=== PATIENT | male | born 1945 | race Caucasian/White ===

== ENCOUNTER 2022-05-11 13:28 | Inpatient (IN) | payer MEDICARE, OTHER ==
[~2022-05-11] VITALS: Ht 175.3 cm; Wt 99.8 kg
[~2022-05-11 13:28] MED LIST: MOXI400 PO
[2022-05-11] MEDS ORDERED: Acetaminophen650 M1 PO (14:53)
[2022-05-11] MEDS ORDERED: ALBU90OI INH (14:54)
[2022-05-11] MEDS ORDERED: ASPI81CH PO (14:54)
[2022-05-11] MEDS ORDERED: ATOR40TA PO (14:54)
[2022-05-11 14:55] LABS: BASOPHILS ABSOLUTE AUTO 0.05 K/mm3 (0.00-0.23); BASOPHILS PERCENT AUTO 1 % (0-2); EOSINOPHILS ABSOLUTE AUTO 0.22 K/mm3 (0.00-0.68); EOSINOPHILS PERCENT AUTO 2 % (0-6); Hematocrit 44.2 % (37.0-53.0); Hemoglobin 14.1 g/dL (13.5-17.5); IMMATURE GRAN ABSOLUTE AUTO 0.04 K/mm3 (0.00-0.10); IMMATURE GRAN PERCENT AUTO 0 % (0-1); LYMPHOCYTES ABSOLUTE AUTO 1.04 K/mm3 (0.84-5.20); LYMPHOCYTES PERCENT AUTO 11 % (21-46); MONOCYTES ABSOLUTE AUTO 0.69 K/mm3 (0.16-1.47); MONOCYTES PERCENT AUTO 7 % (4-13); Mean Corpuscular HGB 27.5 pg (26.0-34.0); Mean Corpuscular HGB Conc 31.9 g/dL (31.5-36.5); Mean Corpuscular Volume 86 fL (80-100); Mean Platelet Volume 10.1 fL (9.1-12.4); NEUTROPHILS ABSOLUTE AUTO 7.24 K/mm3 (1.96-9.15); NEUTROPHILS PERCENT AUTO 78 % (41-73); Platelet Count 371 K/mm3 (150-400); RDW Coefficient Variation 16.9 % (11.7-14.2); RDW Standard Deviation 53.4 fL (35.1-46.3); Red Blood Cell Count 5.13 M/mm3 (4.30-5.90); White Blood Cell Count 9.28 K/mm3 (4.00-11.30)
[2022-05-11] MEDS ORDERED: GLIM4 PO (14:55)
[2022-05-11] MEDS ORDERED: JARDIANCE10 MG PO (14:55)
[2022-05-11] MEDS ORDERED: METF500 (14:55)
[2022-05-11] MEDS ORDERED: MIDO5 PO (14:55)
[2022-05-11] MEDS ORDERED: MIRALAX17 GM PO (14:56)
[2022-05-11] MEDS ORDERED: SENN187 PO (14:58)
[2022-05-11] MEDS ORDERED: TIOT18 INH (14:58)
[2022-05-11 15:15] LABS: Albumin, Blood 2.5 g/dL (3.4-5.0); Albumin/Globulin Ratio 0.5 (0.8-1.8); Bilirubin, Total 0.2 mg/dL (0.1-1.0); Bun/Creatinine Ratio 22.1 (12.0-20.0); Calcium, Blood 9.2 mg/dL (8.5-10.1); Creatinine, Blood 0.91 mg/dL (0.60-1.20); Globulin, Blood 5.3 g/dL (2.2-4.0); Potassium, Blood 4.8 mmol/L (3.5-5.5); Total Protein, Blood 7.8 g/dL (6.4-8.2)
--- NOTE | 2022-05-11 18:52 | NUR ---
ADMISSION: REPORT RECEIVED FROM ED RN. PT TO UNIT AT ABOUT 1800. PT A/O, VSS. LAST OF NS FLUIDS INFUSED AND IV FLUSHED, ANTIBIOTIC HUNG. PICTURES TAKEN OF R FOOT, SEE CHART. DR. BONE IN ROOM AT ABOUT 1830, SEE NEW ORDERS. NO ACUTE CONCERNS. WILL PASS REPORT TO NOC RN.
[2022-05-12] MEDS ORDERED: Calcium Carbon500 MG PO (01:44)
--- NOTE | 2022-05-12 05:03 | NUR ---
SUMMARY: PATIENT DID WELL OVERNIGHT. NO ACUTE EVENTS. CALLED [facility] TO COMPLETE MED REC AND COMPLETED AMDISSION. PATIENT AOX4 ABLE TO ANSWER ORIENTATION QUESTIONS BUT DOES NOT KNOW A LOT ABOUT HIS MEDICAL HISTORY. PLEASANT AND COMPLIANT WITH CARE. PACKED R FOOT WOUND WITH IODOFORM, APPLIED WET TO DRY AND COVERED FOOT PER ORDER. PATIENT STATES HE HAS NO PAIN IN HIS WOUND. HE MOVED WELL IN THE BED ABLE TO TURN INDEPENDENTLY AND BOOST HIMSELF UP. VSS. PATIENT IS A VERY HARD STICK LAB WAS NOT ABLE TO GET REPEAT LACTIC. REQUEST MADE FOR POWER GLIDE IV TO BE INSERTED THIS AM TO ASSIST WITH DRAWS.
[2022-05-12 08:02] LABS: BASOPHILS ABSOLUTE AUTO 0.05 K/mm3 (0.00-0.23); BASOPHILS PERCENT AUTO 1 % (0-2); EOSINOPHILS ABSOLUTE AUTO 0.24 K/mm3 (0.00-0.68); EOSINOPHILS PERCENT AUTO 3 % (0-6); Hematocrit 42.7 % (37.0-53.0); Hemoglobin 13.7 g/dL (13.5-17.5); IMMATURE GRAN ABSOLUTE AUTO 0.04 K/mm3 (0.00-0.10); IMMATURE GRAN PERCENT AUTO 1 % (0-1); LYMPHOCYTES ABSOLUTE AUTO 0.92 K/mm3 (0.84-5.20); LYMPHOCYTES PERCENT AUTO 11 % (21-46); MONOCYTES ABSOLUTE AUTO 0.69 K/mm3 (0.16-1.47); MONOCYTES PERCENT AUTO 8 % (4-13); Mean Corpuscular HGB 27.5 pg (26.0-34.0); Mean Corpuscular HGB Conc 32.1 g/dL (31.5-36.5); Mean Corpuscular Volume 86 fL (80-100); Mean Platelet Volume 9.5 fL (9.1-12.4); NEUTROPHILS ABSOLUTE AUTO 6.71 K/mm3 (1.96-9.15); NEUTROPHILS PERCENT AUTO 78 % (41-73); Platelet Count 309 K/mm3 (150-400); RDW Standard Deviation 53.1 fL (35.1-46.3); Red Blood Cell Count 4.99 M/mm3 (4.30-5.90); White Blood Cell Count 8.65 K/mm3 (4.00-11.30)
[2022-05-12 08:21] LABS: Albumin, Blood 2.3 g/dL (3.4-5.0); Anion Gap 8 mmol/L (6-16); Blood Urea Nitrogen 18 mg/dL (8-24); Bun/Creatinine Ratio 21.5 (12.0-20.0); CO2, Blood 27 mmol/L (21-32); Chloride, Blood 105 mmol/L (98-108); Creatinine, Blood 0.84 mg/dL (0.60-1.20); Glomerular Filtration Rate 92 (60-); Glucose, Blood 82 mg/dL (70-99); Phosphorus, Blood 4.4 mg/dL (2.5-4.9); Potassium, Blood 4.1 mmol/L (3.5-5.5); Sodium, Blood 140 mmol/L (136-145)
--- NOTE | 2022-05-12 15:26 | NUR ---
RN NOTE MR CHERY IS ORIENTATED TO SELF, MONTH/YEAR, TO "HOSPITAL" BUT NOT WHICH ONE, IS QUITE FORGETFUL GENERALLY. BED ALARM ON. LEFT FOOT WITH DRY PEELING SKIN AND RIGHT FOOT WITH DRESSING C,D,I CHANGED ON PRODUCTION GENERALIST. PT DENIES PAIN. MRI DONE THIS AM. PT FORGOT THAT HE HAD HAD AN MRI. POWERGLIDE IN PLACE TODAY. BED ALARM IN USE. BED LOW, CALL LIGHT IN REACH.
--- NOTE | 2022-05-12 18:42 | NUR ---
SHIFT ASSESSMENT. SEE PRIOR RN NOTE. MR CHERY DID NOT GET THE MRI TODAY. HE WAS TRANSFERED DOWN TO MRI AND BROUGHT BACK, BUT PROCEDURE WAS NOT DONE. ARTIFICIAL LOG MACHINE OPERATOR SAID THEY ARE STILL INVESTIGATING THE CARDIAC STENTS. PT CONSULTED BY DR BONE WHO REMOVED THE DRESSING AND REQUESTED A CONSULT TO DR CUMMINGS. I SPOKE TO ANSWERING SERVICE AND GAVE DETAILS FOR CONSULT. THE RIGHT FOOT DRESSING WAS CLEANSED AND REPACKED AND XEROFORM PLACED OVER THE WOUND PER DR BONE INSTRUCTIONS. MR CHERY DOES NOT HAVE ANY SENSATION TO HIS FOOT WHEN DRESSING IS PACKED. BED LOW, CALL LIGHT IN REACH. BED ALARM ON.
[2022-05-13 06:04] LABS: BASOPHILS ABSOLUTE AUTO 0.06 K/mm3 (0.00-0.23); BASOPHILS PERCENT AUTO 1 % (0-2); EOSINOPHILS ABSOLUTE AUTO 0.33 K/mm3 (0.00-0.68); EOSINOPHILS PERCENT AUTO 5 % (0-6); Hematocrit 42.9 % (37.0-53.0); Hemoglobin 13.8 g/dL (13.5-17.5); IMMATURE GRAN ABSOLUTE AUTO 0.02 K/mm3 (0.00-0.10); IMMATURE GRAN PERCENT AUTO 0 % (0-1); LYMPHOCYTES ABSOLUTE AUTO 0.97 K/mm3 (0.84-5.20); LYMPHOCYTES PERCENT AUTO 14 % (21-46); MONOCYTES ABSOLUTE AUTO 0.69 K/mm3 (0.16-1.47); MONOCYTES PERCENT AUTO 10 % (4-13); Mean Corpuscular HGB 27.2 pg (26.0-34.0); Mean Corpuscular HGB Conc 32.2 g/dL (31.5-36.5); Mean Corpuscular Volume 85 fL (80-100); NEUTROPHILS ABSOLUTE AUTO 5.09 K/mm3 (1.96-9.15); NEUTROPHILS PERCENT AUTO 71 % (41-73); Platelet Count 328 K/mm3 (150-400); RDW Coefficient Variation 17.1 % (11.7-14.2); RDW Standard Deviation 52.7 fL (35.1-46.3); Red Blood Cell Count 5.07 M/mm3 (4.30-5.90); White Blood Cell Count 7.16 K/mm3 (4.00-11.30)
[2022-05-13 06:19] LABS: Bun/Creatinine Ratio 15.4 (12.0-20.0); Calcium, Blood 8.7 mg/dL (8.5-10.1); Creatinine, Blood 0.78 mg/dL (0.60-1.20); Potassium, Blood 3.8 mmol/L (3.5-5.5)
--- NOTE | 2022-05-13 06:50 | NUR ---
SHIFT SUMMARY PT ALERT AND ORIENT X 2. VSS. DRSG TO RT FOOT C/D/I. PLEASANT AND COOPERATIVE WITH CARE. PT TO HAVE MRI YESTERDAY, BUT HAVE HISTORY OF CARDIAC STENT AND MRI NOT DONE. X-RAY TECH STILL HAVE TO INVESTIGATE WHETHER PT CAN HAVE MRI DONE WITH CARDIAC STENTS. POWER GLIDE TO LEFT UPPER ARM NOT ABLE TO FLUSH. RIGHT AC IV FLUSHES WELL.
--- NOTE | 2022-05-13 18:13 | NUR ---
SHIFT SUMMARY PT A&O X 3. SEEMS TO HAVE SOME SHORT TERM MEMORY LOSS. ORTHO MD SAW PT TODAY AND ORDERED CT OF R LEG AND XRAY OF R EFREN & FEMUR. 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 PT PLEASANT AND COOPERATIVE WITH ALL CARE.
--- NOTE | 2022-05-14 05:06 | NUR ---
SHIFT SUMMARY ALERT AND ORIENTED TO SELF AND SITUATION. VSS. DENIES PAIN. PT TIRED THIS EVENING AND SLEEPING MOST OF THE NIGHT. NPO AFTER MIDNIGHT AND CHG BATH TO BE GIVEN BY PET CARE ASSISTANT AT 0500. DRSG TO RT FOOT INTACT. PT USES URINAL AT BEDSIDE. BED ALARM ON.
[2022-05-14 10:07] LABS: SARS-Cov-2 (COVID-19) PCR, MMC NEGATIVE (NEGATIVE)
--- NOTE | 2022-05-14 19:10 | NUR ---
SHIFT SUMMARY: PT A/O X 4 BEDREST AT THIS TIME. PT NPO UNTIL 2 PM TODAY WHEN IT WAS DISCOVERED NO SURGERY SCHEDULED. PT GIVEN LUNCH FROM [facility]. PT UPDATED WITH PLAN OF CARE. PT TO BE SEEN BY DR. CUMMINGS ON MONDAY FOR POSSIBLE REVASCULAR SURGERY FIRST. NURSE NOTIFICATION PLACED. PT DENIED PAIN THROUGHOUT THE DAY. WOUND CARE COMPLETED AND PHOTO TAKEN OF WOUND.
--- NOTE | 2022-05-15 07:20 | NUR ---
SHIFT SUMMARY ALERT AND ORIENTED. FORGETFUL AT TIMES. VSS. DENIES PAIN. ABLE TO MAKE NEEDS KNOWN. PLEASANT AND COOPERATIVE WITH CARE. USES URINAL AT BEDSIDE. RT FOOT DRSG C/D/I. SLEPT IN BETWEEN CARES. BED ALARM ON.
--- NOTE | 2022-05-15 20:00 | NUR ---
END OF SHIFT SUMMARY: PATIENT DENIED PAIN AND DISCOMFORT THROUGHOUT THE SHIFT. PATIENT IS AGREEABLE TO CARE; CALM AND COOPERATIVE. PATIENT IS UNABLE TO ANSWER QUESTIONS ABOUT HIS HEALTH HISTORY RELATED TO HIS FOOT. HOWEVER, PATIENT IS ABLE TO REMEMBER THAT HE IS SUPPOSED TO HAVE SURGERY ON THE FOOT. ORDER IN PLACE, AND NOTIFIED NIGHT RN THAT DR. CUMMINGS NEEDS TO BE CONSULTED IN THE MORNING. PATIENT IS NPO AT MIDNIGHT IN THE EVENT A PROCEDURE IS ABLE TO BE PERFORMED TOMORROW.
[2022-05-16 05:37] LABS: Hemoglobin 13.8 g/dL (13.5-17.5); Mean Corpuscular HGB 27.4 pg (26.0-34.0); Mean Corpuscular HGB Conc 32.1 g/dL (31.5-36.5); Mean Corpuscular Volume 85 fL (80-100); Mean Platelet Volume 10.1 fL (9.1-12.4); Platelet Count 281 K/mm3 (150-400); RDW Coefficient Variation 17.1 % (11.7-14.2); RDW Standard Deviation 53.5 fL (35.1-46.3); Red Blood Cell Count 5.04 M/mm3 (4.30-5.90); White Blood Cell Count 7.74 K/mm3 (4.00-11.30)
[2022-05-16 05:57] LABS: Bun/Creatinine Ratio 13.3 (12.0-20.0); Creatinine, Blood 0.83 mg/dL (0.60-1.20); Potassium, Blood 3.8 mmol/L (3.5-5.5)
--- NOTE | 2022-05-16 07:45 | NUR ---
SUMMARY PT NPO SINCE MIDNOC. PENDING SEEING DR CUMMINGS TODAY TO DETERMINE POSSIBILITY OF REVASCULARIZATION.
--- NOTE | 2022-05-16 18:34 | NUR ---
PT CAME TO PCU ABOUT 1620 THIS AFTERNOON. PT TRANSFERED FROM [facility] TO THE BLOCK [facility]LE OPERATOR AND CAME TO PCU 06 AFTER A RVASC. THEY WENT THROUGH HIS GROIN SITE AND IT HAS ANGIOSEAL, AND TEGADERM CHG ON IT. THE SITE IS W/O HEMATOMA, BLEEDING, TENDERNESS, AND DRESSING IS INTACT. PT HAS PRESENT PULSES IN BILATERAL EXTREMITIES AND THEY ARE WARM TO TOUCH. PT CAME TO THE UNIT WITH HIS RIGHT FOOT WOUND NOT DRESSED AND THE PATIENT BEGAN PICKING AT THE WOUND AND PULLED OUT THE PACKING. THE WOUND SHIFT NURSE AND I REDRESSED THE WOUND AND HAVE EDUCATED HIM MANY TIMES ABOUT LEAVING IT ALONE. PT HAS BEEN SCRATCHING AT HIS WOUND SITE WELL AND IS NOW AGGITATED BECAUSE WE KEEP REDIRECTING HIM. VS HAVE BEEN STABLE AND HE IS ON RA. PT SR ON TELE AND DENIES ANY PAIN, ANIGNA, AND SOB. HE IS ALERT AND ORIENTED, BUT HAS MOMENTS OF CONFUSION. HE IS NOT VERY COOPERATIVE AND SNAPS AT STAFF. PT HAS A BED ALARM ON, BED IS IN LOW, DOOR IS OPEN, AND THREE SIDE RAILS ARE UP. WILL CONTINUE TO MONITOR UNTIL SHIFT REPORT IS GIVEN TO THE ONCOMING SHIFT RN. SEE NOTES FOR UPDATES.
--- NOTE | 2022-05-16 19:04 | NUR ---
POST RVASC PT WAS SUPINE FOR AN HOUR STARTING ON ARRIVAL AT ABOUT 1610. PT RAISED TO 15 DEGREES AT AT 1710, 30 DEGREES AT 1810, AND IS NOW SITTING UP AT 45 DEGREES. HE WAS GIVEN HIS DINNER TRAY AND SITTING IN BEAD EATING. SITE W/O HEMATOMA, PAIN, OR BLEEDING. DRESSING INTACT AND CHARTING DONE IN HC: FLOWSHEET ASSESSMENT.
--- NOTE | 2022-05-17 18:41 | NUR ---
TRANSFER NOTE PATIENT TRANSFER TO UNIT FROM PCU. ARRIVED TO ROOM AT 1700. ALERT AND ORIENTED. RIGHT FOOT WITH DRESSING IN PLACE. CHANGED THIS SHIFT BY IR DR CUMMINGS. PLAN IS FOR ORTHO TO FOLLOW UP. TOLERATING ADA DIET AND LIQUIDS. SALINE LOCKED. USES URINAL. CALLS APPROPRIATELY. BEDREST, NWB TO RLE.
--- NOTE | 2022-05-18 04:57 | NUR ---
SHIFT SUMMARY: PT IS ALERT AND ORIENTED. PT IS CALM AND COOPERATIVE WITH CARE. PT CALLS APPROPRIATELY. PT IS ON BED REST, NON-WEIGHT BEARING ON R. FOOT. PT DENIES PAIN, NAUSEA, VOMITING, AND SOB. PT SLEPT MUCH OF THE NIGHT WHEN NOT DISTURBED. POSSIBLE SURGERY TODAY, NPO AFTER MIDNIGHT. NO ACUTE CHANGES OR COMPLICATIONS. WILL COTINUE TO MONITOR.
--- NOTE | 2022-05-18 15:47 | NUR ---
05/18/22 1547 Yamilka Pleitez PATIENT ON SCHEDULED ANTIBIOTICS. NO INTRAOPERATIVE ANTIBIOTICS ORDERED PER SURGEON.
--- NOTE | 2022-05-18 19:48 | NUR ---
END OF SHIFT SUMMARY: PATIENT DENIED PAIN THROUGHOUT THE SHIFT. AFTER RETURNING FROM HIS BKA SURGERY, PATIENT REPORTED ITCHING IN HIS RIGHT LEG AND STUMP. GENTLE RUBBING OF RIGHT LEG AND STUMP HELPED ALLEVIATE THIS. PATIENT RETURNED FROM THE PROCEDURE WITH A WHITE STUMP SOCK IN PLACE. SOCK IS C/D/I WITHOUT ANY SIGNS OF BLEEDING OR DRAINAGE. PATIENT'S VITALS STABLE UPON RETURN. PATIENT DENIED NAUSEA. PATIENT TOLERATED PO LIQUIDS WELL, BUT REPORTED LACK OF APPETITE THIS EVENING.
--- NOTE | 2022-05-19 04:48 | NUR ---
PATIENT HAS BEEN IN [employer] THROUGHOUT SHIFT. NO PAIN REPORTED, ABLE TO REPOSITION IN BED WITH MINIMAL ASSISTANCE. VITALS HAVE BEEN STABLE. DRESSING ON RIGHT LEG BKA IS CLEAN, DRY, AND INTACT. CALL LIGHT LEFT WITHIN REACH.
--- NOTE | 2022-05-19 16:06 | NUR ---
SHIFT SUMMARY PATIENT IS ALERT AND ORIENTED. PATIENT HAS BEEN PLEASENT AND COOPERATIVE WITH CARE. PATIENT HAS BEEN RESTING IN BED ALL SHIFT. PATIENT WORKED WITH OT WITH GOOD SUCCESS. PATIENT HAS HAD NO ACUTE EVENTS THIS SHIFT. VITAL SIGNS REVIEWED. PATIENT HAS NOT COMPLAINED OF PAIN, NAUSEA, SOB OR VOMITTING THIS SHIFT. BED IN LOCKED AND LOWEST POSITION. CALL LIGHT IN PLACE. WILL MONITOR UNTIL SHIFT CHANGE.
--- NOTE | 2022-05-20 04:13 | NUR ---
SHIFT SUMMARY PATIENT HAD NO ACUTE CHANGES. ALERT ORIENTED AND BEDREST. REPORTED PHANTOM RIGHT ANKLE PAIN AND TYLENOL GIVEN PER EMAR. RIGHT BKA. VSS/AFEBRILE. DENIES CHEST PAIN, SOB, AND N/V. PIV REMAINS INTACT. IV ABX INFUSED. WATCHED TV ON/OFF. COOPERATIVE WITH CARE. CALL LIGHT IN REACH. BED IN LOWEST POSITION. WILL CONTINUE TO MONITOR UNTIL DAY SHIFT NURSE ASSUMES CARE.
[2022-05-20 12:03] LABS: SARS-Cov-2 (COVID-19) PCR, MMC NEGATIVE (NEGATIVE)
--- NOTE | 2022-05-20 14:16 | NUR ---
DISCHARGE SUMMARY PATIENT IS ALERT AND ORIENTED. PATIENT HAS HAD NO ACUTE EVENTS THIS SHIFT. VITAL SIGNS REVIEWED. PATIENT IS BEING DISCHARGED BACK TO [facility]. PATIENT WAS TRANSPORTED BY WHEELCHAIR. IV REMOVED WNL.
== END 2022-05-20 14:14 | disposition home or self-care (01) | DRG 270 ==
LOC: ER 13:28 → ERHOLD 16:10 → PCU 16:10 → MEDS 16:10 → PCU 05-16 15:01 → MEDS 05-17 17:30
PROVIDERS: Emergency Medicine; Internal Medicine; ADMIT Internal Medicine
PROC: 047K3DZ Dilation of Right Femoral Artery with Intraluminal Device, Percutaneous Approach (ICD-10-PCS; principal; 2022-05-16)
PROC: 04CK3ZZ Extirpation of Matter from Right Femoral Artery, Percutaneous Approach (ICD-10-PCS; 2022-05-16)
PROC: 04CR3ZZ Extirpation of Matter from Right Posterior Tibial Artery, Percutaneous Approach (ICD-10-PCS; 2022-05-16)
PROC: 047R3ZZ Dilation of Right Posterior Tibial Artery, Percutaneous Approach (ICD-10-PCS; 2022-05-16)
PROC: 3E05317 Introduction of Other Thrombolytic into Peripheral Artery, Percutaneous Approach (ICD-10-PCS; 2022-05-16)
PROC: B41DYZZ Fluoroscopy of Aorta and Bilateral Lower Extremity Arteries using Other Contrast (ICD-10-PCS; 2022-05-16)
PROC: B44HZZZ Ultrasonography of Bilateral Lower Extremity Arteries (ICD-10-PCS; 2022-05-16)
PROC: 0Y6H0Z1 Detachment at Right Lower Leg, High, Open Approach (ICD-10-PCS; 2022-05-18)
DX: E11.52 Type 2 diabetes mellitus with diabetic peripheral angiopathy with gangrene (principal); A48.0 Gas gangrene; M86.8X7 Other osteomyelitis, ankle and foot; L02.611 Cutaneous abscess of right foot; E11.621 Type 2 diabetes mellitus with foot ulcer; E11.69 Type 2 diabetes mellitus with other specified complication; Z66 Do not resuscitate; J44.9 Chronic obstructive pulmonary disease, unspecified; G31.84 Mild cognitive impairment of uncertain or unknown etiology; L97.514 Non-pressure chronic ulcer of other part of right foot with necrosis of bone; E78.5 Hyperlipidemia, unspecified; Z20.822 Contact with and (suspected) exposure to COVID-19; Z87.891 Personal history of nicotine dependence; Z98.890 Other specified postprocedural states; Z79.899 Other long term (current) drug therapy; Z79.51 Long term (current) use of inhaled steroids; Z79.82 Long term (current) use of aspirin; Z79.2 Long term (current) use of antibiotics; Z79.84 Long term (current) use of oral hypoglycemic drugs; Z79.02 Long term (current) use of antithrombotics/antiplatelets
CPT/HCPCS: 36415; 37227; 37229; 37232; 73552; 73590; 73630; 73701; 75625; 75716; 75774; 76937; 80048; 80053; 80069; 82550; 82947; 83605; 84145; 85025; 85027; 85347; 93005; 93010; 93922; 94640; 94664; 94760; 96365; 97110; 97129; 97166; 97530; 97535; 99152; 99153; 99285-25; A9270; C1714; C1724; C1725; C1751; C1760; C1769; C1874; C1887; C1894; C2623; J1100; J1644; J1885; J2250; J2370; J2405; J2543; J2704; J2710; J3010; J7030; J7050; J7120; Q9967; U0004

== ENCOUNTER 2022-08-03 06:51 | Day surgery (SDC) | payer MEDICARE, OTHER ==
[~2022-08-03] VITALS: Ht 175.3 cm; Wt 80.0 kg
[~2022-08-03 06:51] MED LIST changes: +ALBU90OI INH; +ASPI81CH PO; +ATOR40TA PO; +Acetaminophen650 M1 PO; +Calcium Carbon500 MG PO; +GLIM4 PO; +JARDIANCE10 MG PO; +METF500; +MIDO5 PO; +MIRALAX17 GM PO; +SENN187 PO; +TIOT18 INH
--- NOTE | 2022-08-03 12:58 | NUR ---
FULL REPORT TO [facility] REGARDING PT PROCEDURE. VSS. NADN. PT DRESSES SELF WITHOUT DIFF. R FEMORAL SITE REMAINS CLEAR. NO BLEEDING OR HEMATOMA NOTED. VSS. PT IV DC'D. CATH INTACT. PRESSURE DSG APPLIED. PT VERBALIZES UNDERSTANDING WRITTEN INSTRCTIONS. PT AWAITING TRANSPORTATION IN PERSONAL WC BACK TO [facility].
== END 2022-08-03 14:35 | disposition home or self-care (01) ==
LOC: MHTC 06:51
DX: E11.51 Type 2 diabetes mellitus with diabetic peripheral angiopathy without gangrene (principal); I70.213 Atherosclerosis of native arteries of extremities with intermittent claudication, bilateral legs; E11.621 Type 2 diabetes mellitus with foot ulcer; L97.529 Non-pressure chronic ulcer of other part of left foot with unspecified severity; J44.9 Chronic obstructive pulmonary disease, unspecified; Z89.511 Acquired absence of right leg below knee; Z79.82 Long term (current) use of aspirin; Z79.84 Long term (current) use of oral hypoglycemic drugs
CPT/HCPCS: 76937; 99152; 99153; C1714; C1725; C1760; C1769; C1876; C1887; C1894; C2623; J1644; J2250; J3010; J7030; J7040; J7050; Q9967

== ENCOUNTER 2023-02-04 23:36 | Emergency (ER) | payer MEDICARE, OTHER ==
[~2023-02-04] VITALS: Ht 175.3 cm; Wt 89.4 kg
[2023-02-05 01:15] VITALS: BP 78/61
== END 2023-02-05 02:40 | disposition home or self-care (01) ==
LOC: ER 23:36
DX: A41.9 Sepsis, unspecified organism (principal); R65.20 Severe sepsis without septic shock; I95.9 Hypotension, unspecified; E11.9 Type 2 diabetes mellitus without complications; Z79.82 Long term (current) use of aspirin; Z79.84 Long term (current) use of oral hypoglycemic drugs; Z87.891 Personal history of nicotine dependence
CPT/HCPCS: 93005; 93010